=== PATIENT | female | born 1965 | race Caucasian/White ===

== ENCOUNTER 2020-05-13 08:07 | Outpatient (REF) | payer OTHER, SELFPAY ==
--- NOTE | ~2020-05-13 | MM_ITS ---
EXAMINATION: MM SCREENING DIGITAL BREAST TOMOSYNTHESIS, BILATERAL CLINICAL INFORMATION: Screening. Asymptomatic. The lifetime risk of breast cancer based on the Tyrer-Cuzick Model is 6.5%. COMPARISON: Mammography: August 07, 2018 and studies dating back to February 13, 2016 TECHNIQUE: Digital breast tomosynthesis is performed in both the craniocaudal and mediolateral oblique views along with computer-aided detection (CAD). Synthesized 2D images are generated from the tomosynthesis. FINDINGS: There are scattered areas of fibroglandular density (ACR BI-RADS breast composition Category b). There are no significant masses, abnormal calcifications, or other abnormalities. MM/MM tomosynthesis screening BI IMPRESSION: There are no significant changes from prior study. ASSESSMENT: BI-RADS 1: Negative RECOMMENDATION: Routine annual mammography screening. This patient's information was entered into a reminder system with a target due date for their next mammogram.
== END 2020-05-13 08:08 | disposition home or self-care (01) ==
LOC: HO.MAMMO 08:07
PROVIDERS: Visit Provider Nurse Practitioner Family
DX: Z12.31 Encounter for screening mammogram for malignant neoplasm of breast (principal)
CPT/HCPCS: 77063; 77067

== ENCOUNTER 2020-09-08 11:58 | Outpatient (REF) | payer OTHER, SELFPAY ==
--- NOTE | ~2020-09-08 | MR_ITS ---
EXAMINATION: MR ANGIOGRAPHY BRAIN WITHOUT CONTRAST CLINICAL INFORMATION: Cerebral aneurysm, nonruptured. COMPARISON: Report CT angiography head and neck from [facility] with an admission date of 04/11/2014. No associated images. TECHNIQUE: 3-D kihi-eo-upwshi MR angiography of the head with multiple 3-D reformatted images processed on the technologist workstation under concurrent supervision. FINDINGS: Low signal susceptibility artifact over a region measuring approximately 3.5 cm in diameter is present at the expected origin of the right posterior communicating artery and likely represents a coil mass in situ. No residual aneurysm filling is identified. A diminutive right posterior communicating artery is identified. No additional intracranial aneurysms are noted. A diminutive left posterior communicating artery is visualized emanating centrally from the apex of a 2 mm excrescence having the appearance of an infundibulum associated with the left posterior communicating artery. The left vertebral artery is dominant. An anterior communicating artery is present. No large vessel intracranial occlusions are noted. Within the incidentally visualized intracranial structures, partial visualization is made of 5 mm focal cystic encephalomalacia in the region of the anterior body of the right caudate nucleus which may represent a chronic lacunar infarct. The visualized ventricles and sulci demonstrate mild diffuse commensurate prominence without evidence of abnormal extra-axial fluid collections. MR/MR angio head wo con IMPRESSION: 1. 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 No residual aneurysm patency. No additional intracranial aneurysms identified. 2. Partially visualized small chronic lacunar infarct of the anterior body of the right caudate nucleus.
== END 2020-09-08 11:59 | disposition home or self-care (01) ==
LOC: HO.MRI 11:58
PROVIDERS: PCP Physician Assistant; Visit Provider Physician Assistant
DX: I67.1 Cerebral aneurysm, nonruptured (principal)
CPT/HCPCS: 70544

== ENCOUNTER 2021-11-06 10:41 | Outpatient (REF) | payer OTHER, SELFPAY ==
[2021-11-06 16:18] LABS: CT PCR NOT DETECTED (Not Detect.); NG PCR NOT DETECTED (Not Detect.)
== END 2021-11-06 10:42 | disposition home or self-care (01) ==
LOC: HO.LAB 10:41
PROVIDERS: PCP Physician Assistant; Visit Provider Obstetrics & Gynecology
DX: Z11.3 Encounter for screening for infections with a predominantly sexual mode of transmission (principal); N93.9 Abnormal uterine and vaginal bleeding, unspecified
CPT/HCPCS: 58100; 87491; 87591; 88305

== ENCOUNTER 2021-11-16 10:18 | Outpatient (REF) | payer OTHER, SELFPAY ==
--- NOTE | ~2021-11-16 | US_ITS ---
EXAMINATION: US PELVIS CLINICAL INFORMATION: History of abnormal uterine, vaginal bleeding. COMPARISON: Pelvic ultrasound from 06/17/2019. TECHNIQUE: Ultrasound of the pelvis is performed using both transabdominal and transvaginal transducers. Transvaginal imaging is performed due to suboptimal visualization transabdominally. FINDINGS: UTERUS AND CERVIX The anteflexed, anteverted uterus measures approximately 10 x 5.9 x 7.9 cm (kunncq-hu-swweru x AP x transverse dimension). The myometrium is diffusely, mildly heterogeneous, as noted on the prior ultrasound of 06/17/2019. 0.8 x 0.8 x 1 cm hypoechoic focus in the anterior uterine fundus is consistent with intramural leiomyoma. There are multiple nabothian cysts of the cervix, largest 1 cm. The endometrium is normal, measures up to 0.3 - 0.4 cm AP. No evidence of endometrial mass. ADNEXA: The right ovary is 3.1 x 1.7 x 1.4 cm, volume of 3.9 mL. The left ovary is 2.4 x 1.4 x 1.6 cm, volume of 2.8 mL. 1.2 x 1 x 1.2 cm simple cyst of the left adnexa. This is almost certainly benign. No follow-up imaging recommended, if asymptomatic. FREE FLUID: None detected. US/US pelvic and transvaginal IMPRESSION: * The endometrium has a normal appearance. * The mildly enlarged, bulky, heterogeneous uterus remains similar in appearance compared to prior ultrasound of 06/17/2019. The differential diagnosis for uterine enlargement includes adenomyosis. * Small, 1 cm intramural leiomyoma is observed in the uterine fundus. * 1.2 cm simple cyst of the left adnexa. No follow-up imaging is required.
== END 2021-11-16 10:19 | disposition home or self-care (01) ==
LOC: HO.US 10:18
PROVIDERS: Visit Provider Obstetrics & Gynecology
DX: N93.9 Abnormal uterine and vaginal bleeding, unspecified (principal)
CPT/HCPCS: 76830; 76856

== ENCOUNTER 2021-11-20 12:41 | Outpatient (REF) | payer OTHER, SELFPAY ==
--- NOTE | ~2021-11-20 | MM_ITS ---
EXAMINATION: MM SCREENING DIGITAL BREAST TOMOSYNTHESIS, BILATERAL CLINICAL INFORMATION: Screening. Asymptomatic. The lifetime risk of breast cancer based on the Tyrer-Cuzick Model is 5.3%. COMPARISON: Mammography: 05/13/2020 and studies dating back to 02/13/2016. TECHNIQUE: Digital breast tomosynthesis is performed in both the craniocaudal and mediolateral oblique views along with computer-aided detection (CAD). Synthesized 2D images are generated from the tomosynthesis. FINDINGS: The breasts are heterogeneously dense, which may obscure small masses (ACR BI-RADS breast composition Category c). There is a stable parenchymal pattern of the right breast without new abnormal dominant mass or suspicious grouping of microcalcifications. Within the inferior aspect of the left breast, approximately 4 cm from nipple, there is a region of ill-defined density not definitely seen previously for which spot compression films are recommended. MM/MM tomosynthesis screening BI IMPRESSION: Left breast density for further evaluation as described. ASSESSMENT: BI-RADS 0: Incomplete - Need Additional Imaging Evaluation. RECOMMENDATION: 1. Additional views of the left breast. 2. Targeted ultrasound if warranted after review of the additional views. 3. Radiology department staff will contact the patient for additional imaging. This patient's information was entered into a reminder system with a target due date for their next mammogram.
== END 2021-11-20 12:42 | disposition home or self-care (01) ==
LOC: HO.MAMMO 12:41
PROVIDERS: PCP Physician Assistant; Visit Provider Physician Assistant
DX: Z12.31 Encounter for screening mammogram for malignant neoplasm of breast (principal)
CPT/HCPCS: 77063; 77067

== ENCOUNTER 2021-11-21 09:39 | Outpatient (REF) | payer OTHER, SELFPAY ==
[2021-11-21 10:42] LABS: Hematocrit 34.2 % (37.0-47.0); Hemoglobin 10.2 g/dl (12.0-16.0); Mean Corpuscular HGB Conc 29.8 g/dl (31.0-35.0); Mean Corpuscular Hemoglobin 24.6 pg (27.0-33.0); Mean Corpuscular Volume 82.6 fL (80.0-98.0); Mean Platelet Volume 9.2 fL (9.4-12.3); Platelet Count 377 X10*3/uL (160-400); Red Blood Count 4.14 X10*6/uL (4.20-5.50); Red Cell Distribution Width 17.3 % (11.0-16.0); White Blood Count 7.4 X10*3/uL (4.8-10.8)
[2021-11-21 11:21] LABS: HCG Quantitative < 2 mIU/mL; TSH reflex Free T4 1.47 uIU/mL (0.32-4.0)
[2021-11-23 05:21] LABS: Follicle Stimulating Hormone 33.5 mIU/mL; Lutenizing Hormone 13.7 mIU/mL
== END 2021-11-21 09:40 | disposition home or self-care (01) ==
LOC: HO.LAB 09:39
PROVIDERS: PCP Physician Assistant; Visit Provider Obstetrics & Gynecology
DX: N93.9 Abnormal uterine and vaginal bleeding, unspecified (principal)
CPT/HCPCS: 36415; 83001; 83002; 84443; 84702; 85027

== ENCOUNTER 2021-11-28 10:42 | Outpatient (REF) | payer OTHER, SELFPAY ==
--- NOTE | ~2021-11-28 | MM_ITS ---
EXAMINATION: MM DIAGNOSTIC DIGITAL BREAST TOMOSYNTHESIS, LEFT CLINICAL INFORMATION: Recall from screening for question of asymmetric density central lower left breast. COMPARISON: Mammography: 11/20/2021, 05/13/2020, outside mammography 08/07/2018 ([facility]). TECHNIQUE: Digital breast tomosynthesis is performed. 2D images are generated from the tomosynthesis. The following views are obtained: Spot CC, spot ML. FINDINGS: There are scattered areas of fibroglandular density (ACR BI-RADS breast composition Category b). The additional views show no asymmetric density, mass, architectural abnormality in the area for recall. No developing density. There are no significant changes from prior studies. Results are discussed with the patient at time of visit. MM/MM tomosynthesis added views L IMPRESSION: Additional views show no persistent asymmetric density or other change from prior exams. ASSESSMENT: BI-RADS 1: Negative RECOMMENDATION: Routine annual mammography screening. This patient's information was entered into a reminder system with a target due date for their next mammogram.
== END 2021-11-28 10:43 | disposition home or self-care (01) ==
LOC: HO.MAMMO 10:42
PROVIDERS: PCP Physician Assistant; Visit Provider Physician Assistant
DX: R92.2 Inconclusive mammogram (principal)
CPT/HCPCS: 77061; 77065

== ENCOUNTER 2022-11-25 10:38 | Outpatient (REF) | payer OTHER, SELFPAY | END 2022-11-25 10:39 | disposition home or self-care (01) | LOC: HO.MAMMO 10:38 | PROVIDERS: PCP Physician Assistant; Visit Provider Physician Assistant | DX: Z12.31 Encounter for screening mammogram for malignant neoplasm of breast (principal) | CPT/HCPCS: 77063; 77067 ==

== ENCOUNTER → 2022-11-25 10:45 | Outpatient (BNV) | payer OTHER, SELFPAY | PROVIDERS: PCP Physician Assistant; Visit Provider Radiology Diagnostic Radiology | DX: Z12.31 Encounter for screening mammogram for malignant neoplasm of breast (principal) | CPT/HCPCS: 77063; 77067 ==

== ENCOUNTER 2023-03-13 14:54 | Outpatient (AMB) | payer OTHER, SELFPAY ==
[2023-03-13 14:59] VITALS: BP 130/72; PULSE 76; RESP 16; BMI 22.2
--- NOTE | 2023-03-13 14:59 | MHC.PC.OV ---
Vital Signs 03/13/23 14:59 Height 5 ft 3 in Weight 125 lb 8 oz BMI 22.2 BP 130/72 Blood Pressure Location Lt brachial Position Sitting Respiration 16 Pulse 76 Pulse Source Palpation Intake Visit Reasons: Annual PE Intake Note: Patient is here today for a physical. 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 Has reestablish care with Neurosurgery?( Dr Castaneda) and continued evaluation and monitoring of her brain aneurysm. ?patient denies any focal neurological deficits, headaches, vision disturbances. Patient did get MRA 2020 brain showing stable coiled aneurysm. Mammogram: Mammogram done in 2022 normal BI-RADS 1 Colonoscopy: Done 2017 Dr. Patel, repeat 7 years ( family history of colon polyps) Vaccine: UTD with shingles vaccine , UTD with COVID, up-to-date with flu vaccine [facility] Medical History Screening breast examination Hx of ruptured arterial aneurysm Annual physical exam Surgical History History of surgery History of section Family History (Updated 03/13/23 @ 15:18 by Lj Orozco PA-C) Father Hypertension Mother Hypertension CVA (cerebral vascular accident) Social History (Updated 03/13/23 @ 15:19 by Lj Orozco PA-C) Housing: House Alcohol intake: current Alcohol intake frequency: holidays/special occasions only Patient Tobacco Use Status: Never used Tobacco e-Cigarette/Vaping Use: Never Used service: No Current occupational status: employed Current occupation: [employer] Cognitive needs: No Hearing needs: No Vision needs: No Questionnaire PHQ-9 Over the last 2 weeks, how often have you been bothered by any of the following problems? 1. Little interest or pleasure in doing things: not at all 2. Feeling down, depressed, or hopeless: not at all 3. Trouble falling or staying asleep, or sleeping too much: not at all 4. Feeling tired or having little energy: not at all 5. Poor appetite or overeating: not at all 6. Feeling bad about yourself - or that you are a failure or have let yourself or your family down: not at all 7. Trouble concentrating on things, such as reading the newspaper or watching television: not at all 8. Moving or speaking so slowly that other people could have noticed. Or the opposite - being so fidgety or restless that you have been moving around a lot more than usual: not at all 9. Thoughts that you would be better off or of hurting yourself in some way: not at all Total score: 0 Depression Screening Interpretation: Negative Depression Screening Done: Yes 19759 - PHQ-9 Billing: Yes Source: Developed by Drs. Addison Rincon, Elaina Choi, Guillermo Carpenter and colleagues, with an educational whitney from [employer]. Thrive Questionnaire Date Thrive assessed: 03/13/23 I am a: Patient What is your living situation today?: I have a steady place to live Within the past 12 months, did the food you bought not last and you didn't have the money to get more?: Never true Within the past 12 months, did you worry whether your food would run out before you got money to buy more?: Never true Do you have trouble paying for medicines?: No Do you have trouble getting transportation to medical appointments?: No Do you have trouble paying your heating and electricity bill?: No Do you have trouble taking care of your child, family member or friend?: No Do you have trouble with day-to-day activities such as bathing, preparing meals, shopping, managing finances, etc.?: No Are you currently unemployed and looking for a job?: No Are you interested in more education?: No Please select the resources that you would like help with: None Currently or been in a relationship where the following occur: no concerns reported AUDIT C Alcohol Use Questionnaire (AUDIT-C) 1. How often do you have a drink containing alcohol?: Monthly or less 2. How many drinks containing alcohol do you have on a typical day when you are drinking?: 1 or 2 3. How often do you have six or more drinks on one occasion?: Never Total Score: 1 SULMA-7 AMB Questionnaire SULMA-7 Date SULMA - 7 assessed: 03/13/23 Feeling nervous, anxious, or on edge: 0 = Not at all Not being able to stop or control worryin = Not at all Worrying too much about different things: 0 = Not at all Trouble relaxin = Not at all Being so restless that it is hard to sit still: 0 = Not at all Becoming easily annoyed or irritable: 0 = Not at all Feeling afraid as if something awful might happen: 0 = Not at all Total SULMA-7 score (0-4 normal; 5-9 mild; 10-14 moderate; 15-21 severe): 0 Source: Developed by Drs. Addison Rincon, Elaina Choi, Guillermo Carpenter and colleagues, with an educational whitney from [employer]. SULMA-7 Assessment Billing SULMA-7 Assessment Tool: SULMA-7 Assessment 01524 Review of Systems Const Denies body aches, Denies chills, Denies excessive sweating, Denies fatigue, Denies fever(s) and Denies headache(s) Eyes Denies blurry vision ENT Denies dysphagia, Denies vertigo, Denies dizziness, Denies headache(s), Denies hearing loss and Denies tinnitus Card Denies chest pain, Denies chest pain with activity, Denies syncope, Denies irregular heart rhythm and Denies dyspnea Resp Denies chest congestion, Denies cough, Denies hemoptysis, Denies dyspnea and Denies wheezing GI Denies abdominal pain, Denies melena, Denies hematochezia, Denies coffee ground emesis, Denies dysphagia, Denies diarrhea, Denies nausea and Denies vomiting Denies urinary frequency, Denies dysuria, Denies urinary hesitancy and Denies urinary urgency Musc Denies arthralgias, Denies limited range of motion, Denies muscle cramps and Denies muscle weakness Skin/Breast Denies rash and Denies skin ulcer Neuro Denies Abnormal speech present, Denies confusion, Denies vertigo, Denies dizziness, Denies syncope, Denies headache(s), Denies memory loss and Denies seizure-like activity Psych Denies anxiety, Denies confusion, Denies depression, Denies memory loss, Denies panic attacks and Denies paranoia Endo Denies excessive sweating, Denies fatigue, Denies flushing, Denies polydipsia and Denies polyuria Aller/Immun Denies wheezing Physical exam (Primary Care) Vital Signs: Last Vital Signs Pulse 76 03/13/23 14:59 Resp 16 03/13/23 14:59 BP 130/72 03/13/23 14:59 BMI result Body Mass Index 22.2 Tobacco/Smoking Status: Tobacco use Status Tobacco use date assessed 03/13/23 03/13/23 15:04 Patient Tobacco Use Status Never used Tobacco 03/13/23 15:19 e-Cigarette/Vaping Use Never Used 03/13/23 15:19 PHQ-9: PHQ-9 Score PHQ-9: Total score 0 03/13/23 15:14 Depression Screening Interpretation: Negative Thrive Assessment: Date of Thrive Assessment Date Thrive assessed 03/13/23 03/13/23 15:04 Currently or been in a relationship where the following occur: no concerns reported Const General: cooperative, comfortable, no acute distress, alert and awake; No confusion Orientation/consciousness: oriented to person, oriented to place, patient oriented x3 and No confusion HENMT Head: Yes normocephalic Ears: external ears normal and TM's normal bilaterally Face and sinus: No sinus tenderness Mouth: Normal oral and palatal mucosa present and tongue normal Teeth and gingiva: dentition normal and gingiva normal Throat: Yes posterior oropharynx normal, Yes tonsils normal and Yes uvula midline Eyes Conjunctivae: conjunctivae normal Sclerae: sclerae normal Pupils: Equal, round and reactive pupils present EOM: EOMs intact bilaterally Direct Ophthalmoscopy: No no photophobia Neck Neck: Yes no lymphadenopathy, No tender and Yes no JVD Thyroid: Thyroid normal Carotids: no bruits Chest Chest palpation & inspection: no tenderness Resp Effort & Inspection: normal respiratory effort, no audible wheezes, not labored and no stridor Auscultation: no crackles, no rales, no rhonchi and no wheezes Cardio Jugular venous distension: no JVD Rate: regular rate, not bradycardic and not tachycardic Rhythm: regular rhythm Bruits: no carotid bruits Peripheral pulses: Peripheral pulses 2+ throughout GI Inspection: Yes normal to inspection, No abdominal wall ecchymosis and No visible herniation Palpation (GI): Soft to palpation, nontender, no guarding, not rigid and No hepatosplenomegaly present Auscultation: normoactive bowel sounds General: Yes no CVA tenderness Back/Spine/Pelvis Back: no CVA tenderness and No back tenderness Cervical Spine: cervical ROM normal Thoracic/Lumbar Spine: thoracic and lumbar spine normal to inspection, straight leg raise negative bilaterally, No thoraco-lumbar ROM limited and No lumbar spinal tenderness Skin Lesions: no lesions Rashes: no rashes Wounds: no wounds Neuro General: oriented to person, oriented to place, patient oriented x3, CN's II-XI intact bilaterally and No confusion Cranial nerves: Yes Equal, round and reactive pupils present and Yes Normal accommodation reflex present Cognition (Neuro): normal cognition Speech: No Abnormal speech present Gait exam (Neuro): Normal gait present Motor exam (neuro): 5/5 motor strength present throughout Extrem Right upper extremity: full ROM; no cyanosis Left upper extremity: full ROM; no cyanosis Right lower extremity: no edema Left lower extremity: no edema Psych Appearance: grossly normal Mental Status: mental status grossly normal Affect: normal affect Attitude: cooperative Thought process: Normal thought process present Assessment and Plan Assessment & Plan (1) Annual physical exam: Code(s): Z00.00 - Encounter for general adult medical examination without abnormal findings (2) Screening for diabetes mellitus (DM): Code(s): Z13.1 - Encounter for screening for diabetes mellitus (3) Brain aneurysm: Code(s): I67.1 - Cerebral aneurysm, nonruptured Plan: Followed by a neurosurgeon at [facility]. MRA brain has been stable. Does not have any neurological symptoms. (4) Colon cancer screening: Code(s): Z12.11 - Encounter for screening for malignant neoplasm of colon Plan: Has family history colonic polyps. Did colonoscopy in 2017 needs repeat in 7 years. Refer to GI for screening colonoscopy. Orders: Orders Comprehensive [place]. Panel Fast 03/13/23 Z13.1 - Encounter for screening for diabetes mellitus Referrals Gastroenterology Referral Z12.11 - Encounter for screening for malignant neoplasm of colon Coding Level of Care Code Est Pt Prev Care 40-64y(48449) Diagnoses Annual physical exam Z00.00 Screening for diabetes mellitus (DM) Z13.1 Brain aneurysm I67.1 Colon cancer screening Z12.11 Additional Codes SULMA-7 Assessment Billing - SULMA-7 Assessment Tool: SULMA-7 Assessment 10256 ([id number])
== END 2023-03-13 15:31 | disposition home or self-care (01) ==
PROVIDERS: Visit Provider Physician Assistant
DX: Z00.00 Encounter for general adult medical examination without abnormal findings (principal); Z13.1 Encounter for screening for diabetes mellitus; I67.1 Cerebral aneurysm, nonruptured; Z12.11 Encounter for screening for malignant neoplasm of colon
CPT/HCPCS: 99396

== ENCOUNTER 2023-06-03 07:45 | Outpatient (AMB) | payer OTHER, SELFPAY ==
--- NOTE | 2023-06-03 07:49 | A.OFFVIS_ITS ---
Intake Vital Signs 06/03/23 07:50 Height 5 ft 3 in Weight 132 lb 4.438 oz BMI 23.4 BP 137/65 Blood Pressure Location Lt brachial Position Sitting Pulse 62 Intake Visit Reasons: Colonoscopy Screening Intake Note: Michelle presents in the office as a new patient for a colonoscopy screening. 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 Allergies No Known Allergies [No Known Allergies*] Allergy (Verified 06/03/23 07:50) Medication List - Last Reconciled 06/03/23 by Laureen Nelson PA-C No Known Home Meds HPI HPI Comments History of Present Illness Details A 58 y/o family history= both parents- last colonoscopy- 2016- Dr. Patel- no polyps Bowels are normal has a small- rectocele- Appetite is good No respiratory cardiac issues Works full-time No N/V/D abdominal pain fever or chills PFSH Medical History Screening breast examination Hx of ruptured arterial aneurysm Annual physical exam Surgical History Hx of colonoscopy History of surgery History of section Family History Father Hypertension Mother Hypertension CVA (cerebral vascular accident) Social History Housing: House Alcohol intake: current Alcohol intake frequency: holidays/special occasions only Patient Tobacco Use Status: Never used Tobacco e-Cigarette/Vaping Use: Never Used service: No Current occupational status: employed Current occupation: [employer] Cognitive needs: No Hearing needs: No Vision needs: No Review of Systems Const Details: All systems reviewed and are negative All systems reviewed & are unremarkable except as noted in HPI and below Card Denies chest pain and Denies dyspnea Resp Denies dyspnea GI Denies abdominal pain and Denies change in bowel habits Physical Exam Vital Signs: Last Vital Signs Pulse 62 06/03/23 07:50 BP 137/65 06/03/23 07:50 BMI result Body Mass Index 23.4 Const General: cooperative, healthy appearing, comfortable and no acute distress Orientation/consciousness: patient oriented x3 Limitations: no limitations Eyes Sclerae: sclerae normal Resp Effort & Inspection: normal respiratory effort and able to speak in complete sentences Auscultation: clear to auscultation bilaterally, no rales, no rhonchi and no wheezes Cardio Rate: regular rate Rhythm: regular rhythm Heart sounds: S1 normal heart sound present and S2 normal heart sound present GI Palpation (GI): Soft to palpation and nontender Auscultation: normal bowel sounds Skin General skin exam: no rashes or lesions noted Neuro General: patient oriented x3 Extrem General: Yes full ROM Psych Appearance: grossly normal and well kempt Mental Status: mental status grossly normal Speech and movement: Normal speech and movement present and Clear speech present Affect: normal affect Attitude: cooperative Thought process: Normal thought process present Thought content: Normal thought content present Insight: Good insight present (Psych) Judgement: Good judgement present (Psych) Assessment & Plan Assessment & Plan (1) Other family history of colon polyps: Comment: Very pleasant 58-year-old female family history of colon polyps both mother and father Last colonoscopy no polyps detected-due for repeat surveillance Code(s): Z83.718 - Other family history of colon polyps Plan: mother and father (2) Colon cancer screening: Comment: Discussed procedure, rare risks need for escorted due to anesthesia and prep Code(s): Z12.11 - Encounter for screening for malignant neoplasm of colon Plan: colonoscopy Plan colonoscopy MG prep Orders: Orders Colonoscopy - GI Use Only Today Z12.11 - Encounter for screening for malignant neoplasm of colon, Z83.718 - Other family history of colon polyps Medications: New bisacodyl (Dulcolax (bisacodyl)) Day before procedure @ 12 noon Take 4 tablets by mouth followed by large glass of water 20 mg (4 x 5 mg) PO ONCE 1 day PRN 4 tabs 0RF colonoscopy prep Z12.11 - Encounter for screening for malignant neoplasm of colon polyethylene glycol 3350 (Miralax) Take as directed by mouth the day before your procedure. 238 grams PO ONCE 1 day PRN 238 grams 0RF laxative effect Patient Instructions: A 58 y/o female family hx-colon polyps Colonoscopy, MiraLax Gatorade prep, reviewed literature given Encouraged to call with questions or concerns Coding Level of Care Code New Pt Level 3 (92164) Diagnoses Other family history of colon polyps Z83.718 Colon cancer screening Z12.11 Time Spent (min) 30
[2023-06-03 07:50] VITALS: BP 137/65; PULSE 62; BMI 23.4
== END 2023-06-03 09:04 | disposition home or self-care (01) ==
PROVIDERS: PCP Physician Assistant; Visit Provider Physician Assistant
DX: Z83.718 Family history of other colon polyps (principal); Z12.11 Encounter for screening for malignant neoplasm of colon
CPT/HCPCS: 99203

== ENCOUNTER → 2023-06-03 07:45 | Outpatient (BNVA) | payer OTHER, SELFPAY | PROVIDERS: PCP Physician Assistant; Visit Provider Physician Assistant ==

== ENCOUNTER 2023-12-02 10:45 | Outpatient (REF) | payer OTHER, SELFPAY ==
--- NOTE | ~2023-12-02 | MM_ITS ---
EXAMINATION: MM SCREENING DIGITAL BREAST TOMOSYNTHESIS, BILATERAL CLINICAL INFORMATION: Screening. Asymptomatic. COMPARISON: Mammography: Comparison is made with available priors TECHNIQUE: Digital breast mammography with tomosynthesis is performed in both the craniocaudal and mediolateral oblique views along with computer-aided detection (CAD). FINDINGS: The breasts are heterogeneously dense, which may obscure small masses (ACR BI-RADS breast composition Category c). There are no significant masses, abnormal calcifications, or other abnormalities. MM/MM tomosynthesis screening BI IMPRESSION: No mammographic evidence of malignancy. ASSESSMENT: BI-RADS BI-RADS 1 - Negative RECOMMENDATION: Routine annual mammography screening. 1 year F/U This examination should not preclude the clinical evaluation of a suspicious palpable abnormality. This patient's information was entered into a reminder system with a target due date for their next mammogram. Electronically signed by: Tg Morgan DO 12/12/2023 12:35 PM EDT
== END 2023-12-02 10:46 | disposition home or self-care (01) ==
LOC: HO.MAMMO 10:45
PROVIDERS: PCP Physician Assistant; Visit Provider Physician Assistant
DX: Z12.31 Encounter for screening mammogram for malignant neoplasm of breast (principal)
CPT/HCPCS: 77063; 77067

== ENCOUNTER → 2023-12-02 11:00 | Outpatient (BNV) | payer OTHER, SELFPAY | PROVIDERS: PCP Physician Assistant; Visit Provider Internal Medicine | DX: Z12.31 Encounter for screening mammogram for malignant neoplasm of breast (principal) | CPT/HCPCS: 77063; 77067 ==

== ENCOUNTER 2023-12-30 10:40 | Day surgery (SDC) | payer OTHER, SELFPAY ==
--- NOTE | 2023-12-29 13:00 | HO.ANESPROP2 ---
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 Stable at 11/2023 offfice visit with plan for q5 year imaging. [facility] Active Problems Active Problems: All Active Problems Other family history of colon polyps (Acute) Colon cancer screening (Acute) Abnormal uterine bleeding (Acute) Screening for hypothyroidism (Acute) Screening for hypercholesterolemia (Acute) Screening for diabetes mellitus (DM) (Acute) Brain aneurysm (Acute) Screening breast examination (Acute) Hx of ruptured arterial aneurysm (Acute) Annual physical exam (Acute) Past Medical History Medical History Screening breast examination Hx of ruptured arterial aneurysm Annual physical exam Family History Family History Father Hypertension Mother Hypertension CVA (cerebral vascular accident) Surgical History Surgical History Hx of colonoscopy History of surgery History of section Social History Social History Housing: House Are you a primary medicare coordinator to a significant other at home: No Do you presently have visiting nurse or other home services: No Alcohol intake: current Alcohol intake frequency: holidays/special occasions only Patient Tobacco Use Status: Never used Tobacco e-Cigarette/Vaping Use: Never Used Use of substances other than those prescribed or required for medical reasons: No Have you been hit, kicked, punched, or otherwise hurt by someone within the past year? If so, by whom?: No Are you DNR?: No Advance Directives: No Advance Directives Information Provided: Yes Recently lost weight without trying: No Nutrition Risks: No Nutritional Risk Patient : No service: No Current occupational status: employed Current occupation: [employer] Cognitive needs: No Hearing needs: No Vision needs: No Meds Allergies Allergy/AdvReac Type Severity Reaction Status Date / Time No Known Allergies Allergy Verified 12/30/23 11:59 [No Known Allergies*] Exam Narrative Narrative: Brain MRA 11/2023 IMPRESSION: Status post coiling of the right supraclinoid ICA aneurysm. No recurrent aneurysm is seen. Otherwise the intracranial arterial circulations show no high-grade stenosis or vessel cut off. Electronically Signed By: Javid Hernandez MD Assessment and Plan Assessment Anesthesia Assessment: Chart Reviewed Documented by User: Carli Mandel MD 12/30/23 13:49 PMFSH Past Medical History Medical History Screening breast examination Hx of ruptured arterial aneurysm Annual physical exam Family History Family History Father Hypertension Mother Hypertension CVA (cerebral vascular accident) Family history of problems with anesthesia: No Surgical History Surgical History Hx of colonoscopy History of surgery History of section History of Problems with Anesthesia: No Social History Social History Housing: House Are you a primary medicare coordinator to a significant other at home: No Do you presently have visiting nurse or other home services: No Alcohol intake: current Alcohol intake frequency: holidays/special occasions only Patient Tobacco Use Status: Never used Tobacco e-Cigarette/Vaping Use: Never Used Use of substances other than those prescribed or required for medical reasons: No Have you been hit, kicked, punched, or otherwise hurt by someone within the past year? If so, by whom?: No Are you DNR?: No Advance Directives: No Advance Directives Information Provided: Yes Recently lost weight without trying: No Nutrition Risks: No Nutritional Risk Patient : No service: No Current occupational status: employed Current occupation: [employer] Cognitive needs: No Hearing needs: No Vision needs: No Meds Allergies Allergy/AdvReac Type Severity Reaction Status Date / Time No Known Allergies Allergy Verified 12/30/23 11:59 [No Known Allergies*] Exam Airway Mallampati Class: II TM Dist: >3cm Neck ROM: Full Heart: rrr Lungs: cta Assessment and Plan Assessment Anesthesia Assessment: Anesthesia Plan Discussed Final Anesthetic Review Family History of Problems with Anesthesia: No History of Problems with Anesthesia: No NPO: Yes ASA Class: III Final Preanesthetic Review: No Changes in Pt Med Stat, Meds/Allgs Chart Reviewed, Consent Obtained/Reviewed and Anes Risks/Benef Reviewed Patient Risk: Intermediate Procedure Risk: Low Anesthetic Plan Anesthetic Plan: MAC: Disposition: Standard PACU
[2023-12-30 12:01] VITALS: BMI 22.7
[2023-12-30] MEDS: Lactated Ringers 1,000 ML 100 ML IVCONT (12:51)
[2023-12-30 12:52] VITALS: BP 155/79; PULSE 62; RESP 12; TEMP 36.2; O2SAT 100
--- NOTE | 2023-12-30 13:39 | P.HPSUR_ITS ---
Pre-Procedural Eval Section A - 24 Hr Update-Section A only Date of Service: 12/30/23 Section B - Complete if H&P > 30 days Chief Complaint: Encounter for screening for malignant neoplasm of Relevant Family History (Specify if Yes): No Relevant Social History: None Present Medications: see Short Stay Collaborative assessment Medical History: Significant History ( Screening breast examination Hx of rupt ured arterial aneurysm) History of Previous Operations: Relevant previous surgery/procedure and date(s) (Hx of colonoscopy History of surgery History of section) Allergies: Allergies Allergy/AdvReac Type Severity Reaction Status Date / Time No Known Allergies Allergy Verified 12/30/23 11:59 [No Known Allergies*] Review of Systems Sugical H&P ROS: Negative: Constitution, Cardiovascular, Respiratory, Neurological, Psychiatric, Hem-Onc, Allergic/Immunologic, Gastrointestinal, Genitourinary, Musculoskeletal, Integumentary, Endocrine and Eyes/Ears/Nose/Throat Exam Surgical H&P Exam: Normal: HEENT, Normal: Heart, Normal: Lungs, Normal: Extremities, Normal: Abdomen, Normal: Skin and Normal: Neurological Plan Diagnosis/Plan: Unchanged I have reviewed the history and physical and performed a pertinent physical examination on my patient. No changes have occurred unless specified. Time Spent With Patient Time: Total time managing care of this patient today ____ minutes.
--- NOTE | 2023-12-30 14:23 | HO.OPN-COLON ---
Colonoscopy Operative Note Operative Note Date of Service: 12/30/23 Narrative: Operative Information Procedure Description: Colonoscopy Indication: screening Anesthesia: MAC COLONOSCOPY Instrument: Olympus variable stiffness pediatric scope 190L Colonoscopy Monitoring: Vital signs and clinical assessment, continuous EKG monitoring, Pulse oximetry, Carbon Dioxide monitoring and blood pressure monitoring were done throughout the procedure. Colon withdrawal time was 11 minutes. Procedure: The patient was placed in the left lateral decubitis position and pre-procedure medications were administered. After a digital rectal examination of the ano-rectum, the video colonoscope was inserted into the rectum and advanced through the colon to the cecum/TI. The colonoscope was slowly withdrawn in a retrograde panoramic fashion and the colon mucosa was carefully examined including a retroflexed view of the rectum. Findings and interventions are described below. Procedure Difficulty: moderate Findings: Terminal Ileum-normal Cecum:normal Ascending Colon: normal Transverse Colon -normal Descending Colon:normal Sigmoid Colon: at about 22 cm from anal inlet there was an area of edematous mucosa with redness, swelling and superficial ulceration, brushings taken for WATS as well as biopsies Rectum: Retroflexion with small internal hemorrhoids seen, grade I Anorectum - normal Intervention: brushings, cold forceps Colon preparation: [place] Bowel Preparation Scale Right colon; 2 Transverse colon: 2 Left colon; 2 (0 = Unprepared colon segment with mucosa not seen due to solid stool that cannot be cleared. 1 = Portion of mucosa of the colon segment seen, but other areas of the colon segment not well seen due to staining, residual stool and/or opaque liquid. 2 = Minor amount of residual staining, small fragments of stool and/or opaque liquid, but mucosa of colon segment seen well. 3 = Entire mucosa of colon segment seen well with no residual staining, small fragments of stool or opaque liquid) Impression and Post Procedure Diagnosis: rectosigmoid ulceration and edema internal hemorrhoids Plan: High fiber diet leaflet Avoid straining at stool, epsom salts and sitz bath, anusol supps or cream Repeat Colonoscopy depending on biopsy and brushings, might need repeat sigmoidoscopy to re eval the area, could be from rectal prolapse as well or stercoral ulceration but location a little atypical Above findings were reviewed with the patient and relevant handouts were provided if indicated.
[2023-12-30 14:27] VITALS: BP 114/61; PULSE 70; RESP 16; TEMP 36.3; O2SAT 99
[2023-12-30 14:42] VITALS: BP 125/67; PULSE 65; RESP 16; O2SAT 99
[2023-12-30 14:56] VITALS: BP 138/73; PULSE 56; RESP 18; TEMP 36.4; O2SAT 100
== END 2023-12-30 15:30 | disposition home or self-care (01) ==
PROVIDERS: PCP Physician Assistant; Visit Provider Internal Medicine Gastroenterology
PROC: 0DJD8ZZ Inspection of Lower Intestinal Tract, Via Natural or Artificial Opening Endoscopic (ICD-10-PCS; CPT 45378; principal; 2023-12-30 13:40)
DX: Z12.11 Encounter for screening for malignant neoplasm of colon (principal); K51.30 Ulcerative (chronic) rectosigmoiditis without complications; K64.0 First degree hemorrhoids; Z98.890 Other specified postprocedural states; Z79.899 Other long term (current) drug therapy
CPT/HCPCS: 45380; 88305; J2003; J2704

== ENCOUNTER → 2023-12-30 10:40 | Outpatient (BNV) | payer OTHER, SELFPAY | PROVIDERS: PCP Physician Assistant; Visit Provider Internal Medicine Gastroenterology | DX: Z12.11 Encounter for screening for malignant neoplasm of colon (principal); K64.0 First degree hemorrhoids; K52.9 Noninfective gastroenteritis and colitis, unspecified | CPT/HCPCS: 45380 ==

== ENCOUNTER 2024-03-16 15:48 | Outpatient (AMB) | payer OTHER, SELFPAY ==
--- NOTE | 2024-03-16 15:50 | MHC.PC.OV ---
Vital Signs 03/16/24 15:52 Height 5 ft 3 in Weight 131 lb 8 oz BMI 23.3 BP 144/86 H Blood Pressure Location Lt brachial Position Sitting Pulse 82 Pulse Source Pulse Oximeter Pulse Oximetry (%) 99 Oxygen Delivery Method Room Air Intake Visit Reasons: pe Allergies No Known Allergies [No Known Allergies*] Allergy (Verified 03/16/24 16:01) Medication List - Last Reconciled 03/16/24 by Lj Orozco PA-C bisacodyl (Dulcolax (bisacodyl)) 20 mg (4 x 5 mg) PO ONCE PRN 1 day mesalamine 4 grams (60 mL) CT BEDTIME polyethylene glycol 3350 (Miralax) 238 grams PO ONCE PRN 1 day Tobacco use date assessed: 03/13/23 Dental Screening Dental Screen Date: 03/13/23 HPI pe HPI Details Patient is a 58-year-old female here today for annual physical.? 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 History of brain aneurysm: Followed Neurosurgery?( Dr Castaneda) and continued evaluation and monitoring of her brain aneurysm. ?patient denies any focal neurological deficits, headaches, vision disturbances. Patient did get MRA 2020 brain showing stable coiled aneurysm. Mammogram: Mammogram done in November 2023 normal BI-RADS 1 OFFICE ADMINISTRATION: Followed by Abdirahman clerical transcriber. Patient does seem to be perimenopausal Colonoscopy: Colonoscopy done December of 2023, no polyps though ulcerations noted in the sigmoid colon. Otherwise patient asymptomatic. Will be going for repeat sigmoidoscopy Vaccine: UTD with shingles vaccine , UTD with COVID, up-to-date with flu vaccine [facility] Medical History (Updated 03/16/24 @ 16:21 by Lj Orozco PA-C) Screening breast examination Annual physical exam Surgical History Hx of colonoscopy History of surgery History of section Family History Father Hypertension Mother Hypertension CVA (cerebral vascular accident) Social History Housing: House Are you a primary healthcare science specialist to a significant other at home: No Do you presently have visiting nurse or other home services: No Alcohol intake: current Alcohol intake frequency: holidays/special occasions only Patient Tobacco Use Status: Never used Tobacco e-Cigarette/Vaping Use: Never Used service: No Current occupational status: employed Current occupation: [employer] Cognitive needs: No Hearing needs: No Vision needs: No Questionnaire PHQ-9 Over the last 2 weeks, how often have you been bothered by any of the following problems? 1. Little interest or pleasure in doing things: not at all 2. Feeling down, depressed, or hopeless: not at all 3. Trouble falling or staying asleep, or sleeping too much: not at all 4. Feeling tired or having little energy: not at all 5. Poor appetite or overeating: not at all 6. Feeling bad about yourself - or that you are a failure or have let yourself or your family down: not at all 7. Trouble concentrating on things, such as reading the newspaper or watching television: not at all 8. Moving or speaking so slowly that other people could have noticed. Or the opposite - being so fidgety or restless that you have been moving around a lot more than usual: not at all 9. Thoughts that you would be better off or of hurting yourself in some way: not at all Total score: 0 Depression Screening Interpretation: Negative Depression Screening Done: Yes 92184 - PHQ-9 Billing: Yes Source: Developed by Drs. Addison Rincon, Elaina Choi, Guillermo Carpenter and colleagues, with an educational whitney from [employer]. Thrive Questionnaire Date Thrive assessed: 03/16/24 I am a: Patient What is your living situation today?: I have a steady place to live Within the past 12 months, did the food you bought not last and you didn't have the money to get more?: Often true Within the past 12 months, did you worry whether your food would run out before you got money to buy more?: Never true Do you have trouble paying for medicines?: No Do you have trouble getting transportation to medical appointments?: No Do you have trouble paying your heating and electricity bill?: No Do you have trouble taking care of your child, family member or friend?: No Do you have trouble with day-to-day activities such as bathing, preparing meals, shopping, managing finances, etc.?: No Are you currently unemployed and looking for a job?: No Are you interested in more education?: No Please select the resources that you would like help with: None Currently or been in a relationship where the following occur: No concerns reported THRIVE Score: 1 AUDIT C Alcohol Use Questionnaire (AUDIT-C) 1. How often do you have a drink containing alcohol?: Monthly or less 2. How many drinks containing alcohol do you have on a typical day when you are drinking?: 1 or 2 3. How often do you have six or more drinks on one occasion?: Never Total Score: 1 SULMA-7 AMB Questionnaire SULMA-7 Date SULMA - 7 assessed: 03/16/24 Feeling nervous, anxious, or on edge: 0 = Not at all Not being able to stop or control worryin = Not at all Worrying too much about different things: 0 = Not at all Trouble relaxin = Not at all Being so restless that it is hard to sit still: 0 = Not at all Becoming easily annoyed or irritable: 0 = Not at all Feeling afraid as if something awful might happen: 0 = Not at all Total SULMA-7 score (0-4 normal; 5-9 mild; 10-14 moderate; 15-21 severe): 0 Source: Developed by Drs. Addison Rincon, Elaina Choi, Guillermo Carpenter and colleagues, with an educational whitney from [employer]. SULMA-7 Assessment Billing SULMA-7 Assessment Tool: SULMA-7 Assessment 46594 Review of Systems Const Denies body aches, Denies chills, Denies excessive sweating, Denies fatigue, Denies fever(s) and Denies headache(s) Eyes Denies blurry vision ENT Denies dysphagia, Denies vertigo, Denies dizziness, Denies headache(s), Denies hearing loss and Denies tinnitus Card Denies chest pain, Denies chest pain with activity, Denies syncope, Denies irregular heart rhythm and Denies dyspnea Resp Denies chest congestion, Denies cough, Denies hemoptysis, Denies dyspnea and Denies wheezing GI Denies abdominal pain, Denies melena, Denies hematochezia, Denies coffee ground emesis, Denies dysphagia, Denies diarrhea, Denies nausea and Denies vomiting Denies urinary frequency, Denies dysuria, Denies urinary hesitancy and Denies urinary urgency Musc Denies arthralgias, Denies limited range of motion, Denies muscle cramps and Denies muscle weakness Skin/Breast Denies rash and Denies skin ulcer Neuro Denies Abnormal speech present, Denies confusion, Denies vertigo, Denies dizziness, Denies syncope, Denies headache(s), Denies memory loss and Denies seizure-like activity Psych Denies anxiety, Denies confusion, Denies depression, Denies memory loss, Denies panic attacks and Denies paranoia Endo Denies excessive sweating, Denies fatigue, Denies flushing, Denies polydipsia and Denies polyuria Aller/Immun Denies wheezing Physical exam (Primary Care) Vital Signs: Last Vital Signs Pulse 82 03/16/24 15:52 BP 144/86 H 03/16/24 15:52 Pulse Ox 99 03/16/24 15:52 Oxygen Delivery Method Room Air 03/16/24 15:52 BMI result Body Mass Index 23.3 Tobacco/Smoking Status: Tobacco use Status Tobacco use date assessed 03/13/23 03/16/24 15:51 Patient Tobacco Use Status Never used Tobacco 03/16/24 15:51 e-Cigarette/Vaping Use Never Used 03/16/24 15:51 PHQ-9: PHQ-9 Score PHQ-9: Total score 0 03/16/24 15:59 Depression Screening Interpretation: Negative Thrive Assessment: Date of Thrive Assessment Date Thrive assessed 03/16/24 03/16/24 15:54 Currently or been in a relationship where the following occur: No concerns reported Const General: cooperative, comfortable, no acute distress, alert and awake; No confusion Orientation/consciousness: oriented to person, oriented to place, patient oriented x3 and No confusion HENMT Head: Yes normocephalic Ears: external ears normal and TM's normal bilaterally Face and sinus: No sinus tenderness Mouth: Normal oral and palatal mucosa present and tongue normal Teeth and gingiva: dentition normal and gingiva normal Throat: Yes posterior oropharynx normal, Yes tonsils normal and Yes uvula midline Eyes Conjunctivae: conjunctivae normal Sclerae: sclerae normal Pupils: Equal, round and reactive pupils present EOM: EOMs intact bilaterally Direct Ophthalmoscopy: No no photophobia Neck Neck: Yes no lymphadenopathy, No tender and Yes no JVD Thyroid: Thyroid normal Carotids: no bruits Chest Chest palpation & inspection: no tenderness Resp Effort & Inspection: normal respiratory effort, no audible wheezes, not labored and no stridor Auscultation: no crackles, no rales, no rhonchi and no wheezes Cardio Jugular venous distension: no JVD Rate: regular rate, not bradycardic and not tachycardic Rhythm: regular rhythm Bruits: no carotid bruits Peripheral pulses: Peripheral pulses 2+ throughout GI Inspection: Yes normal to inspection, No abdominal wall ecchymosis and No visible herniation Palpation (GI): Soft to palpation, nontender, no guarding, not rigid and No hepatosplenomegaly present Auscultation: normoactive bowel sounds General: Yes no CVA tenderness Back/Spine/Pelvis Back: no CVA tenderness and No back tenderness Cervical Spine: cervical ROM normal Thoracic/Lumbar Spine: thoracic and lumbar spine normal to inspection, straight leg raise negative bilaterally, No thoraco-lumbar ROM limited and No lumbar spinal tenderness Skin Lesions: no lesions Rashes: no rashes Wounds: no wounds Neuro General: oriented to person, oriented to place, patient oriented x3, CN's II-XI intact bilaterally and No confusion Cranial nerves: Yes Equal, round and reactive pupils present and Yes Normal accommodation reflex present Cognition (Neuro): normal cognition Speech: No Abnormal speech present Gait exam (Neuro): Normal gait present Motor exam (neuro): 5/5 motor strength present throughout Extrem Right upper extremity: full ROM; no cyanosis Left upper extremity: full ROM; no cyanosis Right lower extremity: no edema Left lower extremity: no edema Psych Appearance: grossly normal Mental Status: mental status grossly normal Affect: normal affect Attitude: cooperative Thought process: Normal thought process present Coding Level of Care Code Est Pt Prev Care 40-64y(07637) Diagnoses Annual physical exam Z00.00 Screening for diabetes mellitus (DM) Z13.1 Brain aneurysm I67.1 Additional Codes SULMA-7 Assessment Billing - SULMA-7 Assessment Tool: SULMA-7 Assessment 89367 ([id number]) PHQ-9 - 30341 - PHQ-9 Billing: Yes ([id number]) Assessment & Plan Assessment & Plan (1) Annual physical exam: Code(s): Z00.00 - Encounter for general adult medical examination without abnormal findings Category: Medical Plan: As per HPI (2) Screening for diabetes mellitus (DM): Code(s): Z13.1 - Encounter for screening for diabetes mellitus Category: Medical Plan: As per HPI (3) Brain aneurysm: Code(s): I67.1 - Cerebral aneurysm, nonruptured Category: Medical Plan: Has a history of brain aneurysm that has been coiled. Continues Orders: Orders Comprehensive [place]. Panel Fast 03/16/24 Z13.1 - Encounter for screening for diabetes mellitus
[2024-03-16 15:52] VITALS: BP 144/86; PULSE 82; O2SAT 99; BMI 23.3
== END 2024-03-16 16:20 | disposition home or self-care (01) ==
PROVIDERS: PCP Physician Assistant; Visit Provider Physician Assistant
DX: Z00.00 Encounter for general adult medical examination without abnormal findings (principal); Z13.1 Encounter for screening for diabetes mellitus; I67.1 Cerebral aneurysm, nonruptured

== ENCOUNTER → 2024-03-16 15:48 | Outpatient (BNVA) | payer OTHER, SELFPAY | PROVIDERS: PCP Physician Assistant; Visit Provider Physician Assistant | DX: Z00.00 Encounter for general adult medical examination without abnormal findings (principal); Z86.79 Personal history of other diseases of the circulatory system | CPT/HCPCS: 96127 ==

== ENCOUNTER 2024-03-23 07:34 | Outpatient (REF) | payer OTHER, SELFPAY ==
[2024-03-23 08:57] LABS: Alanine Aminotransferase 25 U/L (0-31); Albumin Level 4.4 g/dL (3.5-5.0); Alkaline Phosphatase 95 U/L (39-117); Anion Gap 12 (12-20); Aspartate Amino Transferase 27 U/L (5-31); Bilirubin Total 0.4 mg/dL (0.0-1.0); Blood Urea Nitrogen 15 mg/dL (9-16); Calcium 9.7 mg/dL (8.4-10.2); Carbon Dioxide 32 mmol/L (22-29); Chloride 103 mmol/L (96-108); Estimated Glomerular Filt Rate > 60; Glucose Fasting 95 mg/dL (60-99); Potassium 4.2 mmol/L (3.3-5.1); Sodium 143 mmol/L (135-145); Total Protein 7.2 g/dL (6.5-8.0)
== END 2024-03-23 07:35 | disposition home or self-care (01) ==
LOC: HO.LAB 07:34
PROVIDERS: PCP Physician Assistant; Visit Provider Physician Assistant
DX: Z13.1 Encounter for screening for diabetes mellitus (principal)
CPT/HCPCS: 36415; 80053

== ENCOUNTER 2024-04-07 11:10 | Day surgery (SDC) | payer OTHER, SELFPAY ==
[2024-04-05 15:13] VITALS: BMI 23.4
--- NOTE | 2024-04-06 09:19 | P.CONAN_ITS ---
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 Stable at 11/2023 offfice visit with plan for q5 year imaging. PMF Active Problems Active Problems: All Active Problems HTN (hypertension) (Acute) Other family history of colon polyps (Acute) Colon cancer screening (Acute) Abnormal uterine bleeding (Acute) Screening for hypothyroidism (Acute) Screening for hypercholesterolemia (Acute) Screening for diabetes mellitus (DM) (Acute) Brain aneurysm (Acute) Screening breast examination (Acute) Annual physical exam (Acute) Past Medical History Medical History (Updated 04/05/24 @ 15:10 by Mandy Lira RN) Brain aneurysm HTN (hypertension) Family History Family History Father Hypertension Mother Hypertension CVA (cerebral vascular accident) Family history of problems with anesthesia: No Surgical History Surgical History (Updated 04/05/24 @ 15:11 by Mandy Lira RN) Hx of colonoscopy History of surgery History of section History of Problems with Anesthesia: No Social History Social History Housing: House Are you a primary career development associate to a significant other at home: No Do you presently have visiting nurse or other home services: No Alcohol intake: current Alcohol intake frequency: holidays/special occasions only Patient Tobacco Use Status: Never used Tobacco e-Cigarette/Vaping Use: Never Used Advance Directives: No Advance Directives Information Provided: Yes service: No Current occupational status: employed Current occupation: [employer] Cognitive needs: No Hearing needs: No Vision needs: No Meds Allergies Allergy/AdvReac Type Severity Reaction Status Date / Time No Known Allergies Allergy Verified 03/16/24 16:01 [No Known Allergies*] Exam Height,Weight and Vital Signs: Height 5 ft 3 in Weight 59.874 kg Assessment and Plan Assessment Anesthesia Assessment: Chart Reviewed Final Anesthetic Review Family History of Problems with Anesthesia: No History of Problems with Anesthesia: No Documented by User: Genesis Mahmood MD 04/07/24 12:02 PMFSH Past Medical History Medical History (Updated 04/05/24 @ 15:10 by Mandy Lria RN) Brain aneurysm HTN (hypertension) Family History Family History Father Hypertension Mother Hypertension CVA (cerebral vascular accident) Surgical History Surgical History (Updated 04/05/24 @ 15:11 by Mandy Lira RN) Hx of colonoscopy History of surgery History of section Social History Social History Housing: House Are you a primary career development associate to a significant other at home: No Do you presently have visiting nurse or other home services: No Alcohol intake: current Alcohol intake frequency: holidays/special occasions only Patient Tobacco Use Status: Never used Tobacco e-Cigarette/Vaping Use: Never Used Advance Directives: No Advance Directives Information Provided: Yes service: No Current occupational status: employed Current occupation: [employer] Cognitive needs: No Hearing needs: No Vision needs: No Meds Allergies Allergy/AdvReac Type Severity Reaction Status Date / Time No Known Allergies Allergy Verified 03/16/24 16:01 [No Known Allergies*] Exam Airway Mallampati Class: II TM Dist: >3cm Neck ROM: Full Heart: rrr Lungs: cta Assessment and Plan Assessment Anesthesia Assessment: Anesthesia Plan Discussed Final Anesthetic Review NPO: Yes ASA Class: II Final Preanesthetic Review: No Changes in Pt Med Stat, Meds/Allgs Chart Reviewed and Consent Obtained/Reviewed Patient Risk: Intermediate Procedure Risk: Low Anesthetic Plan Anesthetic Plan: MAC: Disposition: Standard PACU
[2024-04-07 12:07] VITALS: BMI 23.6
[2024-04-07] MEDS: Sodium Phosphate,Mono-Dibasic 133 ML ENEMA PR (12:16)
[2024-04-07 12:29] VITALS: BP 143/65; PULSE 61; RESP 16; TEMP 36.7; O2SAT 98
[2024-04-07] MEDS: Lactated Ringers 1,000 ML 100 ML IVCONT (12:33)
--- NOTE | 2024-04-07 12:58 | P.CONAN_ITS ---
[facility] Active Problems Active Problems: All Active Problems HTN (hypertension) (Acute) Other family history of colon polyps (Acute) Colon cancer screening (Acute) Abnormal uterine bleeding (Acute) Screening for hypothyroidism (Acute) Screening for hypercholesterolemia (Acute) Screening for diabetes mellitus (DM) (Acute) Brain aneurysm (Acute) Screening breast examination (Acute) Annual physical exam (Acute) Past Medical History Medical History (Updated 04/05/24 @ 15:10 by Mandy Lira RN) Brain aneurysm HTN (hypertension) Family History Family History Father Hypertension Mother Hypertension CVA (cerebral vascular accident) Family history of problems with anesthesia: No Surgical History Surgical History Hx of colonoscopy History of surgery History of section History of Problems with Anesthesia: No Social History Social History Housing: House Are you a primary palliative care nurse to a significant other at home: No Do you presently have visiting nurse or other home services: No Alcohol intake: current Alcohol intake frequency: holidays/special occasions only Patient Tobacco Use Status: Former Tobacco user Tobacco use type: Cigarette e-Cigarette/Vaping Use: Never Used service: No Current occupational status: employed Current occupation: [employer] Cognitive needs: No Hearing needs: No Vision needs: No Meds Allergies Allergy/AdvReac Type Severity Reaction Status Date / Time No Known Allergies Allergy Verified 04/07/24 12:04 [No Known Allergies*] Active Medications: Current Medications Lactated Ringer's (Lr) 1,000 mls @ 100 mls/hr IVCONT .Q10H [facility] Last Admin: 04/07/24 12:33 Dose: 100 mls/hr Naloxone HCl (Naloxone Hcl 0.4 Mg/Ml Vial) 0.04 mg IVPUSH Q5M PRN PRN Reason: Excessive sedation or RR < 8 Naloxone HCl (Naloxone Hcl 0.4 Mg/Ml Vial) 0.04 mg IVPUSH Q5M PRN PRN Reason: Excessive sedation or RR < 8 Sodium Biphosphate/Sodium Phosphate (Sodium Phosphate,[place]-Dibasic 133 Ml Enema) 133 ml [place] ONCE PRN PRN Reason: Pre-Op Surgical Prep Last Admin: 04/07/24 12:16 Dose: 133 ml Exam Height,Weight and Vital Signs: Height 5 ft 3 in Weight 60.555 kg Last Vital Signs Temp 98.1 F 04/07/24 12:29 Pulse 61 04/07/24 12:29 Resp 16 04/07/24 12:29 BP 143/65 H 04/07/24 12:29 Pulse Ox 98 04/07/24 12:29 O2 Del Method Room Air 04/07/24 12:29 Airway Mallampati Class: II (caps laterally) TM Dist: >3cm Neck ROM: Full Heart: rrr Lungs: cta Assessment and Plan Assessment Anesthesia Assessment: Anesthesia Plan Discussed and Chart Reviewed Final Anesthetic Review Family History of Problems with Anesthesia: No History of Problems with Anesthesia: No NPO: Yes ASA Class: II Final Preanesthetic Review: No Changes in Pt Med Stat, Meds/Allgs Chart Reviewed and Consent Obtained/Reviewed Patient Risk: Low Procedure Risk: Low Anesthetic Plan Anesthetic Plan: MAC: Disposition: Standard PACU
--- NOTE | 2024-04-07 12:58 | MHC.SHP ---
Pre-Procedural Eval Section A - 24 Hr Update-Section A only Date of Service: 04/07/24 Section B - Complete if H&P > 30 days Chief Complaint: Ulcerative colitis, unspecified, without complicat Relevant Family History (Specify if Yes): No Relevant Social History: None Present Medications: see Short Stay Collaborative assessment Medical History: Significant History (Brain aneurysm HTN (hypertension)) History of Previous Operations: Relevant previous surgery/procedure and date(s) (Hx of colonoscopy History of surgery History of section) Allergies: Allergies Allergy/AdvReac Type Severity Reaction Status Date / Time No Known Allergies Allergy Verified 04/07/24 12:04 [No Known Allergies*] Review of Systems Sugical H&P ROS: Negative: Constitution, Cardiovascular, Respiratory, Neurological, Psychiatric, Hem-Onc, Allergic/Immunologic, Gastrointestinal, Genitourinary, Musculoskeletal, Integumentary, Endocrine and Eyes/Ears/Nose/Throat Exam Surgical H&P Exam: Normal: HEENT, Normal: Heart, Normal: Lungs, Normal: Extremities, Normal: Abdomen, Normal: Skin and Normal: Neurological Plan Diagnosis/Plan: Unchanged I have reviewed the history and physical and performed a pertinent physical examination on my patient. No changes have occurred unless specified. Time Spent With Patient Time: Total time managing care of this patient today ____ minutes.
--- NOTE | 2024-04-07 13:19 | W.PM.OPN ---
Operative Note Operative Note Date of Service: 04/07/24 Narrative: Procedure Description: sigmoidoscopy Indication: prior colitis at 22 cm Anesthesia: MAC Sigmoidoscopy Instrument: Upper endoscope Colonoscopy Monitoring: Vital signs and clinical assessment, continuous EKG monitoring, Pulse oximetry, Carbon Dioxide monitoring and blood pressure monitoring were done throughout the procedure. Procedure: The patient was placed in the left lateral decubitis position and pre-procedure medications were administered. After a digital rectal examination of the ano-rectum, the video colonoscope was inserted into the rectum and advanced through the colon to the sigmoid colon The scope was slowly withdrawn in a retrograde panoramic fashion and the colon mucosa was carefully examined . Findings and interventions are described below. Procedure Difficulty: easy Findings: Transverse Colon Sigmoid Colon: normal Rectum: Normal , retroflexion with small internal hemorrhoids Anorectum - normal Colon preparation: good Impression and Post Procedure Diagnosis: internal hemorrhoids Plan: no further f/u needed, no inflammation noted Above findings were reviewed with the patient and relevant handouts were provided if indicated.
[2024-04-07 13:21] VITALS: BP 115/65; PULSE 68; RESP 16; TEMP 36.3; O2SAT 95
--- OUTSIDE RECORDS SUMMARY | 2024-04-07 13:28 | XMS_ITS ---
Author Name [facility] Organization Unknown History of Medication Use Medication Directions Dispensed Refills Start Date End Date Stat No known medications No known medications active
[2024-04-07 13:36] VITALS: BP 119/61; PULSE 70; RESP 16; O2SAT 98
[2024-04-07 13:55] VITALS: BP 133/70; PULSE 65; RESP 18; TEMP 36.1; O2SAT 98
== END 2024-04-07 14:22 | disposition home or self-care (01) ==
PROVIDERS: PCP Physician Assistant; Visit Provider Internal Medicine Gastroenterology
PROC: 0DJD8ZZ Inspection of Lower Intestinal Tract, Via Natural or Artificial Opening Endoscopic (ICD-10-PCS; CPT 45330; principal; 2024-04-07 14:20)
DX: K51.90 Ulcerative colitis, unspecified, without complications (principal); K64.8 Other hemorrhoids; Z83.719 Family history of colon polyps, unspecified; I10 Essential (primary) hypertension; I60.7 Nontraumatic subarachnoid hemorrhage from unspecified intracranial artery; Z98.890 Other specified postprocedural states; Z79.899 Other long term (current) drug therapy
CPT/HCPCS: 45330; J2003; J2704

== ENCOUNTER → 2024-04-07 11:10 | Outpatient (BNV) | payer OTHER, SELFPAY | PROVIDERS: PCP Physician Assistant; Visit Provider Internal Medicine Gastroenterology | DX: K51.90 Ulcerative colitis, unspecified, without complications (principal); K64.8 Other hemorrhoids | CPT/HCPCS: 45330 ==

== ENCOUNTER 2024-12-06 09:40 | Outpatient (REF) | payer OTHER, SELFPAY ==
--- NOTE | ~2024-12-06 | MM_ITS ---
EXAMINATION: MM SCREENING DIGITAL BREAST TOMOSYNTHESIS, BILATERAL CLINICAL INFORMATION: Screening. Asymptomatic. COMPARISON: Mammography: Comparison is made with available priors TECHNIQUE: Digital breast mammography with tomosynthesis is performed in both the craniocaudal and mediolateral oblique views along with computer-aided detection (CAD). FINDINGS: The breasts are heterogeneously dense, which may obscure small masses. There are no significant masses, abnormal calcifications, or other abnormalities. MM/MM tomosynthesis screening BI IMPRESSION: No mammographic evidence of malignancy. ASSESSMENT: BI-RADS Category 1: Negative RECOMMENDATION: Routine annual mammography screening. 1 year F/U This examination should not preclude the clinical evaluation of a suspicious palpable abnormality. This patient's information was entered into a reminder system with a target due date for their next mammogram. Electronically signed by: Tg Morgan DO 12/07/2024 03:25 PM EDT
--- OUTSIDE RECORDS SUMMARY | 2024-12-06 10:31 | XMS_ITS ---
Author Name [facility] Organization Unknown History of Medication Use Medication Directions Dispensed Refills Start Date End Date Stat us No known medications No known medications active Problems Problem Status Onset Date Problem Type Date of Resolution Source Elevated BP without diagnosis of hypertension active EncounterDiagnosisAct CT_ CVSCT Encounters Encounter Type Encounter Reason Primary Diagnosis Location Date Ambulatory Blood Pressure Evaluation Elevated blood-pressure reading, without diagnosis of hypertension [facility] [place] 03/22/2024 Care Team Organization Name Specialty Phone Email Start Date End Da te [facility] [place] [facility] 03/22/2024
== END 2024-12-06 09:41 | disposition home or self-care (01) ==
LOC: HO.MAMMO 09:40
PROVIDERS: PCP Physician Assistant; Visit Provider Physician Assistant
DX: Z12.31 Encounter for screening mammogram for malignant neoplasm of breast (principal)
CPT/HCPCS: 77063; 77067

== ENCOUNTER → 2024-12-06 10:00 | Outpatient (BNV) | payer OTHER, SELFPAY | PROVIDERS: PCP Physician Assistant; Visit Provider Internal Medicine | DX: Z12.31 Encounter for screening mammogram for malignant neoplasm of breast (principal) | CPT/HCPCS: 77063; 77067 ==